=== PATIENT | female | born 2000 | race Caucasian/White ===

== ENCOUNTER 2019-01-04 21:50 | Emergency (ER) | payer SELFPAY ==
[~2019-01-04] VITALS: Ht 170.2 cm; Wt 57.7 kg
[2019-01-04 21:54] VITALS: Ht 170.2 cm; Wt 57.7 kg
--- NOTE | 2019-01-04 23:37 | ERD ---
ER Documentation Chief Complaint Chief Complaint L ankle pain/swelling after stepping wrong on it 4 hrs ago HPI 18-year-old female, previously healthy, presents to the emergency department, complaining of left ankle pain after a forced inversion that occurred approximately 4 hours ago. The pain is dull, constant, 6/10. Patient denies distal weakness, numbness or tingling. ROS All systems reviewed and are negative except as per history of present illness. Medications Home Meds Active Scripts Acetaminophen* (Tylenol*) 325 Mg Tablet, 2 TAB PO Q8 PRN for PAIN AND OR ELEVATED TEMP, #20 TAB Prov:ESTEE DEGROOT MD 01/04/19 Ibuprofen* (Motrin*) 600 Mg Tab, 600 MG PO Q8, #15 TAB Prov:ESTEE DEGROOT MD 01/04/19 Allergies Allergies: Coded Allergies: No Known Allergy (Unverified , 01/04/19) PMhx/Soc Medical and Surgical Hx: pt denies Medical Hx, pt denies Surgical Hx Hx Alcohol Use: No Hx Substance Use: No Hx Tobacco Use: No Smoking Status: Never smoker FmHx Family History: No diabetes, No coronary disease Physical Exam Vitals Vital Signs Date Temp Pulse Resp B/P (MAP) Pulse Ox O2 O2 Flow FiO2 Time Delivery Rate 01/04/19 99.6 89 18 141/65 98 21:54 (90) Physical Exam Const: No acute distress Head: Atraumatic Eyes: Normal Conjunctiva ENT: Normal External Ears, Nose and Mouth. Neck: Full range of motion. No meningismus. Resp: Clear to auscultation bilaterally Cardio: Regular rate and rhythm, no murmurs Abd: Soft, non tender, non distended. Normal bowel sounds Skin: No petechiae or rashes Back: No midline or flank tenderness Ext: Left ankle: Significant lateral malleolar edema, no crepitus, no gross deformity, full passive range of motion, distal neurovascular exam intact. Neur: Awake and alert Psych: Normal Mood and Affect Results 24 hrs Current Medications Medications Dose Sig/Scar Start Time Status Last (Trade) Ordered Route PRN Stop Time Admin Dose Reason Admin 650 mg ONCE ONCE 01/05/19 DC 01/04/19 Acetaminophen PO 00:00 01/05/19 23:51 (Tylenol 00:01 Tab) Ibuprofen 400 mg ONCE ONCE 01/05/19 DC 01/04/19 (Motrin) PO 00:00 01/05/19 23:51 00:01 Procedures/MDM Acute left ankle pain: no red flags. Differential diagnosis include but not limited to: Ankle sprain/strain, ligament injury, arthritis; low suspicion for fracture, dislocation, septic arthritis. Neurovascular exam grossly intact. no clinical findings suggestive of acute infectious process, no deformity, no rashes. Pertinent Data: X-rays: No fracture or dislocation Physical examination and clinical presentation consistent most likely with left ankle sprain. During the ED course the patient received treatment with short leg posterior splint and crutches presenting overall improvement of the symptoms. Results and clinical impression discussed with patient who agrees with management. The patient is stable to be treated outpatient and will be discharged home with recommendations for ice, rest and partial immobilization. NSAIDs 3 times daily for 5 days and close monitoring. The patient was instructed to follow up with the primary care provider in the next 48h. If symptoms persist, worsen or new symptoms develop, then patient should return to the ED immediately. Instructions explained and given to patient with acknowledgment and demonstrated understanding. Disclaimer: Inadvertent spelling and grammatical errors are likely due to EHR/dictation software use and do not reflect on the overall quality of patient care. Also, please note that the electronic time recorded on this note does not necessarily reflect the actual time of the patient encounter. Departure Diagnosis: Primary Impression: Left ankle sprain Condition: Stable Additional Instructions: Thank you very much for allowing us to participate in your care. Your health and safety is our top priority at [facility]. Call your primary care doctor TOMORROW for an appointment during the next 2-4 days and bring all the information and medications prescribed. Have prescriptions filled and follow precisely the directions on the label. If the symptoms get worse and your provider is unavailable, return to the E mergency Department immediately. ESTEE DEGROOT MD Jan 04, 2019 23:37
[2019-01-04] MEDS ORDERED: ACET325T33 PO (23:49)
[2019-01-04] MEDS ORDERED: IBUP-1542 PO (23:49)
[2019-01-05] MEDS ORDERED: IBUPROFEN 200 MG TAB PO ONE
[2019-01-05] MEDS ORDERED: ACETAMINOPHEN 325 MG TAB PO ONE
[2019-01-05 00:57] VITALS: BP 110/76; PULSE 83; RESP 18
== END 2019-01-05 00:59 | disposition home or self-care (01) ==
LOC: FTE 21:50
DX: S93.402A Sprain of unspecified ligament of left ankle, initial encounter (principal); X50.1XXA Overexertion from prolonged static or awkward postures, initial encounter; Y92.9 Unspecified place or not applicable
CPT/HCPCS: 73610